=== PATIENT | female | born 1980 | race Caucasian/White ===

== ENCOUNTER → 2022-11-30 | Day surgery (SDC) | payer OTHER | END | disposition home or self-care (01) | LOC: FMAMMOTONE 12:30 | PROVIDERS: ATTEND Midwife | PROC: 0HBT3ZX Excision of Right Breast, Percutaneous Approach, Diagnostic (ICD-10-PCS; principal; 2022-11-30) | DX: R92.0 Mammographic microcalcification found on diagnostic imaging of breast (principal) | CPT/HCPCS: 19081; 19082; 76098-TC-FY; 87899; 88305-TC; A4648 ==

== ENCOUNTER → 2023-07-18 | Day surgery (SDC) | payer OTHER | END | disposition home or self-care (01) | LOC: JRADUS-SUR 08:36 | PROVIDERS: ATTEND Midwife | PROC: 0H9V3ZX Drainage of Bilateral Breast, Percutaneous Approach, Diagnostic (ICD-10-PCS; principal; 2023-07-18) | DX: D24.2 Benign neoplasm of left breast (principal); D24.1 Benign neoplasm of right breast | CPT/HCPCS: 19083; 19084; 77066-TC; 87899; 88305-TC; 88312-TC; 88342-TC; A4648 ==